=== PATIENT | female | born 1985 | race Caucasian/White ===

== ENCOUNTER 2017-01-11 20:02 | Emergency (ER) | payer OTHER ==
[2017-01-11] MEDS ORDERED: IV NORMAL SALINE 1000ML BAG 1,000 ML IV SCH (20:46)
[2017-01-11] MEDS ORDERED: ONDANSETRON PF 4 MG/2 ML VIAL. IV ONE ×3 (21:00→23:15)
[2017-01-11] MEDS ORDERED: fentaNYL PF VIAL 100 MCG/2 ML VIAL IV ONE (21:00)
[2017-01-11 21:02] LABS: BASO % 0 % (0-3); EOS % 0 % (0-3); HEMATOCRIT 45.7 % (36.0-47.0); HEMOGLOBIN 15.4 g/dL (12.0-15.5); LYMPH # 0.6 x10^3/uL (1.0-4.8); LYMPH % 4 % (24-48); MEAN CORPUSCULAR HEMOGLOBIN 31 pg (25-35); MEAN CORPUSCULAR HGB CONC 34 g/dL (31-37); MEAN CORPUSCULAR VOLUME 91 fL (79-100); MONO % 2 % (0-9); NEUT % 94 % (31-73); PLATELET COUNT 172 x10^3/uL (140-400); RED BLOOD COUNT 5.01 x10^6/uL (3.50-5.40); RED CELL DISTRIBUTION WIDTH 12.8 % (11.5-14.5); WHITE BLOOD COUNT 16.3 x10^3/uL (4.0-11.0)
[2017-01-11] MEDS: fentaNYL PF VIAL 100 MCG/2 ML VIAL IV PRN ×3 (21:09→23:13)
[2017-01-11 21:15] LABS: CALCIUM 9.7 mg/dL (8.5-10.1); GFR 65.1; POTASSIUM 3.7 mmol/L (3.5-5.1)
[2017-01-11 21:16] LABS: BILIRUBIN,URINE NEGATIVE (NEG); GLUCOSE,URINE NEGATIVE (NEG); NITRITE,URINE NEGATIVE (NEG); PROTEIN,URINE 30 mg/dL (NEG-TRACE)
[2017-01-11 21:19] LABS: ALBUMIN 4.3 g/dL (3.4-5.0); ALBUMIN/GLOBULIN RATIO 1.2 (1.0-1.7); TOTAL BILIRUBIN 0.8 mg/dL (0.2-1.0); TOTAL PROTEIN 7.9 g/dL (6.4-8.2)
[2017-01-11 21:32] LABS: BACTERIA,URINE FEW /HPF (0-FEW); RBC,URINE 0 /HPF (0-2); SQUAMOUS EPITHELIAL CELL,UR FEW /LPF; WBC,URINE OCC /HPF (0-4)
[2017-01-11 21:41] LABS: PLT ESTIMATE ADEQUATE (ADEQUATE); TOXIC GRANULATION MOD
[2017-01-11 21:59] LABS: NEG OBC UR NEG; POS OBC UR POS
[2017-01-11] MEDS ORDERED: IOHEXOL 300 MG/ML 75 ML VIAL IV ONE (22:15)
[2017-01-11] MEDS ORDERED: CONTRAST GIVEN MC PRN (22:15)
--- NOTE | 2017-01-11 22:29 | RAD ---
CT abdomen and pelvis with contrast Indication: Abdominal pain and vomiting since 8:00 AM.. . Technique: Intravenous contrast is given. No oral contrast as per request. Comparison:None available Exposure: One or more of the following individualized dose reduction techniques were utilized for this examination: 1. Automated exposure control 2. Adjustment of the mA and/or kV according to patient size 3. Use of iterative reconstruction technique. FINDINGS: Lower thorax: Lung bases are clear. Pneumoperitoneum:No gross pneumoperitoneum. Liver: Unremarkable Spleen: Borderline enlarged at 12.5 cm. Pancreas: Unremarkable Adrenals:No evidence of mass. Kidneys:Unremarkable Gallbladder: Surgically absent. Aorta: Abdominal aorta is nonaneurysmal Lymph nodes: No significant enlargement GI tract: The stomach is distended and ptotic. No evidence of bowel obstruction. Mild retained stool in the cecum. Appendix: Not definitively visualized. Ascites: No gross ascites. Urinary bladder: Not opacified or distended. Bones: No destructive process. IMPRESSION: 1. Borderline splenomegaly. 2. No acute findings in the abdomen or pelvis. 3. Retained stool identified at the cecum. Electronically signed by: Kev Kauffman MD (01/11/2017 10:26 PM) [facility]
--- NOTE | 2017-01-11 23:02 | PHYS DOC ---
Past Medical History Past Medical History: Kidney Stone Past Surgical History: Cholecystectomy, Tubal ligation Additional Past Surgical Histo: PLATE IN WRIST,duodenal jejunostomy Alcohol Use: None Drug Use: None Adult General Chief Complaint Chief Complaint: ABDOMINAL PAIN HPI HPI Patient is a 31 year old female who comes to the ED by EMS for the complaint of abdominal pain, nausea and vomiting. Patient states that she has problems from time to time with abdominal pain and vomiting. She states that she is vomited about 20 times today. It's been 4 or 5 months since she's had to go to the ER for this. She usually goes to the ER in [place] because she lives in [place]. Patient states usually when she has this, she has to go to the ER and get IV fluids, IV pain and nausea medications, to get it stopped. Patient states in about 2006 she had surgery where they "redid my lower intestines". She did not have an ostomy. She has also had gallbladder removed and "13 kidney stones", also tubal ligation. She denies history of a bowel obstruction. She does not know whether there is a specific diagnosis of her recurrent abdominal pain problems. PCP Dr. Napier in [place] Review of Systems Review of Systems Constitutional: Denies fever or chills [] HENT: She has had a bit of a scratchy throat Respiratory: Denies cough or shortness of breath [] GI: As in history of present illness : Denies Musculoskeletal: Denies back pain or joint pain [] Current Medications Current Medications Current Medications Medications (Trade) Dose Ordered Sig/Leann Start Time Stop Time Status Last Admin Dose Admin Fentanyl Citrate (Fentanyl 2ml Vial) 50 mcg PRN Q15MIN PRN 01/11/17 21:00 01/11/17 23:23 DC 01/11/17 23:13 50 MCG Info (Do NOT chart on this entry -- for MONITORING) 1 each PRN DAILY PRN 01/11/17 22:15 01/11/17 23:23 DC Iohexol (Omnipaque 300 Mg/ml) 75 ml 1X ONCE 01/11/17 22:15 01/11/17 22:16 DC 01/11/17 22:10 75 ML Ondansetron HCl (Zofran) 4 mg 1X ONCE 01/11/17 23:15 01/11/17 23:16 DC 01/11/17 23:13 4 MG Sodium Chloride 1,000 ml @ 1,000 mls/hr Q1H 01/11/17 20:46 01/11/17 21:45 DC 01/11/17 20:46 1,000 MLS/HR Allergies Allergies Allergies Coded Allergies Type Severity Reaction Last Updated Verified No Known Drug Allergies 07/25/14 No Physical Exam Physical Exam Constitutional: Thin female, alert, appears uncomfortable, alert and mentating normally. HENT: Normocephalic, atraumatic, bilateral external ears normal, oropharynx moist, tonsils not enlarged, no pharyngeal erythema, nose normal. [] Eyes: conjunctiva normal, no discharge. [] Neck: Normal range of motion, no stridor. [] Cardiovascular:Heart rate regular rhythm, no murmur [] Lungs & Thorax: Bilateral breath sounds clear to auscultation [] Abdomen: Bowel sounds normal, soft, no masses, no pulsatile masses. Nondistended. Mildly tender to palpation throughout the abdomen. No rebound or guarding. No localized tenderness. Also noted is skin discoloration of the abdominal wall the patient states is from overuse of a heating pad. Skin: Warm, dry, no erythema, no rash. [] Extremities: No tenderness, no cyanosis, no clubbing, ROM intact, no edema. [] Neurologic: Alert and oriented X 3, normal motor function, normal sensory function, no focal deficits noted. [] Current Patient Data Vital Signs Vital Signs Date Time Temp Pulse Resp B/P (MAP) Pulse Ox O2 Delivery O2 Flow Rate FiO2 01/11/17 23:15 94 16 120/78 (92) 98 Room Air 01/11/17 21:10 98.4 98.4 Lab Values Laboratory Tests Test 01/11/17 20:15 01/11/17 20:55 01/11/17 21:00 White Blood Count 16.3 x10^3/uL (4.0-11.0) H Red Blood Count 5.01 x10^6/uL (3.50-5.40) Hemoglobin 15.4 g/dL (12.0-15.5) Hematocrit 45.7 % (36.0-47.0) Mean Corpuscular Volume 91 fL (79-100) Mean Corpuscular Hemoglobin 31 pg (25-35) Mean Corpuscular Hemoglobin Concent 34 g/dL (31-37) Red Cell Distribution Width 12.8 % (11.5-14.5) Platelet Count 172 x10^3/uL (140-400) Neutrophils (%) (Auto) 94 % (31-73) H Lymphocytes (%) (Auto) 4 % (24-48) L Monocytes (%) (Auto) 2 % (0-9) Eosinophils (%) (Auto) 0 % (0-3) Basophils (%) (Auto) 0 % (0-3) Neutrophils # (Auto) 15.3 x10^3uL (1.8-7.7) H Lymphocytes # (Auto) 0.6 x10^3/uL (1.0-4.8) L Monocytes # (Auto) 0.3 x10^3/uL (0.0-1.1) Eosinophils # (Auto) 0.0 x10^3/uL (0.0-0.7) Basophils # (Auto) 0.0 x10^3/uL (0.0-0.2) Segmented Neutrophils % 74 % (35-66) H Band Neutrophils % 21 % (0-9) H Lymphocytes % 5 % (24-48) L Toxic Granulation Mod Platelet Estimate Adequate (ADEQUATE) Sodium Level 138 mmol/L (136-145) Potassium Level 3.7 mmol/L (3.5-5.1) Chloride Level 102 mmol/L (98-107) Carbon Dioxide Level 20 mmol/L (21-32) L Anion Gap 16 (6-14) H Blood Urea Nitrogen 17 mg/dL (7-20) Creatinine 1.0 mg/dL (0.6-1.0) Estimated GFR (Cockcroft-Gault) 65.1 BUN/Creatinine Ratio 17 (6-20) Glucose Level 157 mg/dL (70-99) H Calcium Level 9.7 mg/dL (8.5-10.1) Total Bilirubin 0.8 mg/dL (0.2-1.0) Aspartate Amino Transferase (AST) 16 U/L (15-37) Alanine Aminotransferase (ALT) 15 U/L (14-59) Alkaline Phosphatase 62 U/L (46-116) Total Protein 7.9 g/dL (6.4-8.2) Albumin 4.3 g/dL (3.4-5.0) Albumin/Globulin Ratio 1.2 (1.0-1.7) Lipase 72 U/L (73-393) L Urine Test Negative (NEG) Urine Collection Type Unknown Urine Color Dk yellow Urine Clarity Clear Urine pH 8.0 Urine Specific Eunice 1.025 Urine Protein 30 mg/dL (NEG-TRACE) Urine Glucose (UA) Negative mg/dL (NEG) Urine Ketones (Stick) 40 mg/dL (NEG) Urine Blood Negative (NEG) Urine Nitrite Negative (NEG) Urine Bilirubin Negative (NEG) Urine Urobilinogen Dipstick 1.0 mg/dL (0.2 mg/dL) Urine Leukocyte Esterase Negative (NEG) Urine RBC 0 /HPF (0-2) Urine WBC Occ /HPF (0-4) Urine Squamous Epithelial Cells Few /LPF Urine Bacteria Few /HPF (0-FEW) Urine Mucus Marked /LPF Laboratory Tests 01/11/17 20:15 Laboratory Tests 01/11/17 20:15 EKG EKG [] Radiology/Procedures Radiology/Procedures CT scan of the abdomen and pelvis with IV contrast was read by the radiologist. No acute findings.[] Course & Med Decision Making Course & Med Decision Making Pertinent Labs and Imaging studies reviewed. (See chart for details) 31-year-old female with a history of chronic recurrent bouts of abdominal pain with nausea and vomiting, has not been evaluated here at [facility] for this in the past. She doesn't have a known diagnosis. She has had abdominal surgery in the past. I do feel that we need to rule out bowel obstruction. Labs are consistent with the patient's history of multiple episodes of vomiting , with leukocytosis and she appears mildly dehydrated. Otherwise unremarkable. CT scan of the abdomen and pelvis negative for acute findings. Pt Was treated in the ED with IV fluids, IV pain and nausea medication. Recheck of the patient, she appears to feel much better. She is no longer vomiting. She does not appear to be in any distress. I discussed the reassuring findings with her and she is comfortable with discharge. She will call a family member to come pick her up. [] Dragon Disclaimer Dragon Disclaimer This electronic medical record was generated, in whole or in part, using a voice recognition dictation system. Departure Departure Impression: Primary Impression: Abdominal pain, chronic, generalized Additional Impression: Nausea & vomiting Disposition: 01 HOME, SELF-CARE Condition: IMPROVED Referrals: KYRA JUAREZ MD (PCP) Patient Instructions: Nausea and Vomiting, [id number] Additional Instructions: No driving for 12 hours because of the medications you were given here. Drink small amounts of fluid frequently to stay hydrated. Clear liquids only until your symptoms have improved. Follow-up with your primary care doctor for further evaluation and treatment of your chronic abdominal problems. Problem Qualifiers KARISSA SIFUENTES MD Jan 11, 2017 23:02
[2017-01-11 23:15] VITALS: BP 120/78
== END 2017-01-11 23:22 | disposition home or self-care (01) ==
LOC: ER 20:02
DX: G89.29 Other chronic pain (principal); R10.84 Generalized abdominal pain; R11.2 Nausea with vomiting, unspecified; Z90.49 Acquired absence of other specified parts of digestive tract; Z87.442 Personal history of urinary calculi; Z98.51 Tubal ligation status
CPT/HCPCS: 36415; 74177; 80053; 81001; 81025; 83690; 85007; 85025; 96361; 96374; 96375; 96376; 99285; J2405; J3010; J7030; Q9967

== ENCOUNTER 2017-08-14 05:30 | Emergency (ER) | payer OTHER ==
[2017-08-14 05:47] LABS: URINE HCG POC HCG NEGATIVE (Negative)
[2017-08-14] MEDS: ONDANSETRON PF 4 MG/2 ML VIAL. IV (05:56)
[2017-08-14] MEDS: IV NORMAL SALINE 1000ML BAG 1,000 ML IV (05:57)
[2017-08-14] MEDS: diphenhydrAMINE 50 MG/ML VIAL IVP (06:02)
[2017-08-14] MEDS: METOCLOPRAMIDE HCL 10 MG/2 ML VIAL. IV (06:02)
[2017-08-14] MEDS: HALOPERIDOL LACTATE 5 MG/ML VIAL. IVP (06:02)
[2017-08-14 06:06] LABS: BASO % 0 % (0-3); EOS % 0 % (0-3); HEMATOCRIT 47.6 % (36.0-47.0); HEMOGLOBIN 16.5 g/dL (12.0-15.5); LYMPH # 0.9 x10^3/uL (1.0-4.8); LYMPH % 6 % (24-48); MEAN CORPUSCULAR HEMOGLOBIN 32 pg (25-35); MEAN CORPUSCULAR HGB CONC 35 g/dL (31-37); MEAN CORPUSCULAR VOLUME 91 fL (79-100); MONO # 0.3 x10^3/uL (0.0-1.1); MONO % 2 % (0-9); NEUT # 14.4 x10^3uL (1.8-7.7); NEUT % 92 % (31-73); PLATELET COUNT 253 x10^3/uL (140-400); RED BLOOD COUNT 5.24 x10^6/uL (3.50-5.40); RED CELL DISTRIBUTION WIDTH 12.5 % (11.5-14.5); WHITE BLOOD COUNT 15.6 x10^3/uL (4.0-11.0)
[2017-08-14 06:21] LABS: ADD MAN DIFF? YES
[2017-08-14 06:22] LABS: CLARITY,URINE CLEAR; COLOR,URINE AMBER
[2017-08-14 06:23] LABS: BACTERIA,URINE 0 /HPF (0-FEW); BILIRUBIN,URINE SMALL (NEG); GLUCOSE,URINE NEGATIVE (NEG); NITRITE,URINE NEGATIVE (NEG); PROTEIN,URINE 30 mg/dL (NEG-TRACE); RBC,URINE 0 /HPF (0-2); SQUAMOUS EPITHELIAL CELL,UR MOD /LPF
[2017-08-14 07:14] LABS: ALBUMIN 3.7 g/dL (3.4-5.0); ALK PHOS 65 U/L (46-116); ALT (SGPT) 24 U/L (14-59); ANION GAP 14 (6-14); AST (SGOT) 16 U/L (15-37); BLOOD UREA NITROGEN 16 mg/dL (7-20); BUN/CREATININE RATIO 15 (6-20); CALCIUM 8.2 mg/dL (8.5-10.1); CARBON DIOXIDE 20 mmol/L (21-32); CHLORIDE 106 mmol/L (98-107); CREATININE 1.1 mg/dL (0.6-1.0); GFR 58.3; GLUCOSE 141 mg/dL (70-99); LIPASE 52 U/L (73-393); POTASSIUM 4.2 mmol/L (3.5-5.1); SODIUM 140 mmol/L (136-145); TOTAL BILIRUBIN 0.5 mg/dL (0.2-1.0); TOTAL PROTEIN 7.4 g/dL (6.4-8.2)
[2017-08-14 07:16] LABS: BARBITURATES NEG (NEG); BENZODIAZEPINES POS (NEG); CANNABINOIDS POS (NEG); COCAINE NEG (NEG); METHADONE NEG (NEG); OPIATES POS (NEG); PHENCYCLIDINE NEG (NEG)
[2017-08-14 07:18] LABS: AMPHETAMINE/METHAMPHETAMINE NEG (NEG); ETHANOL, URINE NEG (NEG)
[2017-08-14 08:57] LABS: % LYMPHS 10 % (24-48); % SEGS 90 % (35-66)
[2017-08-14 08:58] LABS: PLT ESTIMATE ADEQUATE (ADEQUATE)
== END 2017-08-14 08:23 | disposition home or self-care (01) ==
LOC: ER 05:30
DX: R10.84 Generalized abdominal pain (principal); G43.A1 Cyclical vomiting, in migraine, intractable; R11.0 Nausea; G89.29 Other chronic pain; Z87.442 Personal history of urinary calculi; F17.210 Nicotine dependence, cigarettes, uncomplicated; Z98.51 Tubal ligation status; Z90.49 Acquired absence of other specified parts of digestive tract
CPT/HCPCS: 36415; 74022; 80053; 80307; 81001; 81025; 83690; 85007; 85025; 87086; 96361; 96374; 96375; 99285-25; J1200; J1630; J2405; J2765; J7030

== ENCOUNTER 2020-12-22 13:01 | Emergency (ER) | payer OTHER ==
[~2020-12-22] VITALS: Ht 160 cm; Wt 68.2 kg
[~2020-12-22 13:01] MED LIST: HYOS0.12 PO; ONDA4TAB10 PO
--- NOTE | 2020-12-22 13:28 | PHYS DOC ---
Past Medical History Past Medical History: Kidney Stone Additional Past Medical Histor: chronic abdominal pain Past Surgical History: Cholecystectomy, Tubal ligation Additional Past Surgical Histo: PLATE IN WRIST,duodenal jejunostomy Smoking Status: Current Every Day Smoker Alcohol Use: None Drug Use: None General Adult EDM: Chief Complaint: CHEST PAIN HPI: HPI: 35-year-old female PMH CAD on plavix (meds reviewed in backpack in ed), HTN, HLD, anxiety/depression and marijuana use, presents the ED with complaints of nonradiating chest pain described as " chest pressure right in the middle," stating this feels similar to her previous heart attack in August 2020 at [facility]. Patient states pain has been constant for the past 2 days. Denies any cocaine or methamphetamine abuse but does admit to marijuana use. No relief with heated chakraborty bag on chest. Reports tetanus is UTD. Is requesting IV fluids and analgesia. Review of Systems: Review of Systems: Constitutional: Denies fever or chills. [] Eyes: Denies change in visual acuity. [] HENT: Denies nasal congestion or sore throat. [] Respiratory: Denies cough or shortness of breath. [] Cardiovascular: Denies syncope or edema GI: Denies abdominal pain, nausea, vomiting, bloody stools or diarrhea. [] : Denies dysuria or vaginal bleeding Musculoskeletal: Denies back pain or joint pain. [] Integument: Denies rash or diaphoresis Neurologic: Denies headache, focal weakness or sensory changes. [] Endocrine: Denies polyuria or polydipsia. [] Lymphatic: Denies swollen glands. [] Psychiatric: Denies depression or anxiety. [] Heart Score: C/O Chest Pain: Yes HEART Score for Chest Pain: HEART Score for Chest Pain Response (Comments) Value History Moderately Suspicious 1 ECG Normal 0 Age < 45 0 Risk Factors >3 Risk Factors or Hx CAD 2 Troponin < Normal Limit 0 Total 3 Risk Factors: Risk Factors: DM, Current or recent (<one month) smoker, HTN, HLP, family history of CAD, obesity. Risk Scores: Score 0 - 3: 2.5% MACE over next 6 weeks - Discharge Home Score 4 - 6: 20.3% MACE over next 6 weeks - Admit for Clinical Observation Score 7 - 10: 72.7% MACE over next 6 weeks - Early Invasive Strategies Allergies: Allergies: Allergies Coded Allergies Type Severity Reaction Last Updated Verified No Known Drug Allergies 07/25/14 No Physical Exam: PE: Constitutional: Afebrile, unkept disheveled appearance, no peripheral iv access- difficult to obtain HENT: Normocephalic, atraumatic, Eyes: EOMI, conjunctiva normal, no discharge. Neck: Normal range of motion, supple, Cardiovascular: S1/2 present, regular rhythm, small ruptured blister with no surrounding erythema over mid-chest Lungs & Thorax: Speaking in full sentences, bilateral equal chest rise, no tachypnea or increased work of breathing Abdomen: soft, no tenderness, Skin: Warm, dry, no erythema, no rash. [] Back: No tenderness, no CVA tenderness. [] Extremities: No tenderness, no cyanosis, no lower extremity edema Neurologic: Alert and oriented X 3, normal motor function, normal sensory fun ction, no focal deficits noted. [] Psychologic: Affect normal, judgement normal, mood normal. [] EKG: EK Sinus rhythm 93 bpm, no axis deviation, normal intervals, poor baseline EKG with no obvious ST elevations, ST depressions or T wave inversions 1415 sinus at 93 bpm, no axis deviation, QTC 470, no obvious ST elevations or ST depressions, no TWIs Radiology/Procedures: Radiology/Procedures: IMAGING REPORT Signed PATIENT: APOLINAR CARROLL ACCOUNT: [id number] : 1985 LOCATION: ER AGE: 35 SEX: F EXAM STATUS: PRE ER ORD. PHYSICIAN: FOREIGN LOTT DO REASON: cp PROCEDURE: PORTABLE CHEST 1V Exam performed: One view chest. Indication: Reason: cp / Spl. Instructions: / History: Date of Service: 12/22/2020 1:22 PM Comparison: 2 views chest from 12/29/2012. Single AP upright portable view chest findings: Cardiomediastinal silhouette is within limits of normal. No acute infiltrates, effusion or pneumothorax is detected. The bony structures are normal. Impression: No acute cardiopulmonary process is detected. Electronically signed by: Trip Arteaga MD (12/22/2020 1:36 PM) [id number] DICTATED and SIGNED BY: TRIP ARTEAGA MD DATE: 12/22/20 [id number] 0 Impression: PERC rule for pulmonary embolus 0 criteria No need for further workup, as <2% chance of PE. If no criteria are positive and clinicians pre-test probability is <15%, PERC Rule criteria are satisfied. Course & Med Decision Making: Course & Med Decision Making Pertinent Labs and Imaging studies reviewed. (See chart for details) Concern for atypical chest pain x 2 days with no associated sxs. Low risk for MACE. Perc rule negative. D-dimer wnl. Two troponin negative with no obvious ischemia on ekg. On re-evaluation, patient calm, resting and in no distress and states her symptoms have resolved. Will discharge home with strict ED return precautions were given for syncope, neurologic deficits, difficulties breathing or chest pressure with nausea, vomiting and diaphoresis. Encouraged urgent outpatient follow-up with PMD and cardiology. Life-threatening processes were considered but are low suspicion at this time, given history, physical exam and ED workup. Pt was educated on all prescription medications and adverse effects. All patient's questions were answered and pt was stable at time of discharge. Life/limb-threatening differential includes but is not limited to, acute myocardial infarction, aortic dissection, congestive heart failure, esophageal i njury including rupture, surgical abdomen, arrhythmia, cardiomyopathy, myocarditis, pericarditis, peptic ulcer disease, pneumomediastinum, pneumonia, pneumothorax, pulmonary embolus, unstable angina, rib fracture, contusion, pericardial tamponade or effusion, traumatic injury including mediastinal hemorrhage or hematoma, or pulmonary contusion. I have spoken with the patient and/or caregivers. I explained the patient's condition, diagnoses and treatment plan based on the information available to me at this time. I have answered the patient and/or caregiver's questions and addressed any concerns. The patient and/or caregivers have a good understanding of patient's diagnosis, condition and treatment plan as can be expected at this point. Vital signs have been stable. Patient's condition is stable and appropriate for discharge from the emergency department. Patient will pursue further outpatient evaluation with primary care physician or other designated or consulting physician as outlined in the discharge instructions. The patient and/or caregivers are agreeable to this plan of care and follow-up instructions have been explained in detail. The patient and/or caregivers have received these instructions in written form and have expressed an understanding of the discharge instructions. The patient and/or caregivers are aware that any significant change of condition or worsening of symptoms should prompt immediate return to this or the closest emergency department or call to 911. Samuel Disclaimer: Samuel Disclaimer: This electronic medical record was generated, in whole or in part, using a voice recognition dictation system. Departure Departure Impression: Primary Impression: Chest pain Disposition: HOME / SELF CARE / HOMELESS Condition: STABLE Referrals: JOSH STEVENSON MD (PCP) Follow-up with your primary care physician in 24 to 48 hours OR FOLLOW UP WITH FAMILY MEDICINE: [address] [place] [address] Patient Instructions: Chest Pain (Nonspecific) Additional Instructions: FOLLOW UP WITH CARDIOLOGY: FOR DEFINITIVE MANAGEMENT within 1 week [facility] [address] [place] [address] EMERGENCY DEPARTMENT GENERAL DISCHARGE INSTRUCTIONS Thank you for coming to [facility] Emergency Department (ED) today and trusting us with you care. We trust that you had a positive experience in our Emergency Department. If you wish to speak to the department management, you may call the Director at [phone]. YOUR FOLLOW UP INSTRUCTIONS ARE FOLLOWS: 1. Do you have a private Doctor? If you do not have a private doctor, please ask for a resource list of physicians or clinics that may be able to assist you with follow up care. ADDITIONAL INSTRUCTIONS AND INFORMATION: 1. Your care today has been supervised by a physician who is specially trained in emergency care. Many problems require more than one evaluation for a complete diagnosis and treatment. We recommend that you schedule your follow up appointment as re commended to ensure complete treatment of you illness or injury. If you are unable to obtain follow up care and continue to have a problem, or if your condition worsens, we recommend that you return to the ED. 2. We are not able to safely determine your condition over the phone nor are we able to give sound medical advice over the phone. For these safety reasons, if you call for medical advice we will ask you to come to the ED for further evaluation. 3. If you have any questions regarding these discharge instructions please call the ED at [phone]. SAFETY INFORMATION: In the interest of safety, wellness, and injury prevention; we encourage you to wear your sealbelt, if you smoke; quite smoking, and we encourage family to use a protective helmet for bicycling and other sporting events that present an increased risk for head injury. IF YOUR SYMPTOMS WORSEN OR NEW SYMPTOMS DEVELOP, OR YOU HAVE CONCERNS ABOUT YOUR CONDITION; OR IF YOUR CONDITION WORSENS WHILE YOU ARE WAITING FOR YOUR FOLLOW UP APPOINTMENT; EITHER CONTACT YOUR PRIMARY CARE DOCTOR, THE PHYSICIAN WHOSE NAME AND NUMBER YOU WERE GIVEN, OR RETURN TO THE ED IMMEDIATELY. [facility] DO Dec 22, 2020 13:28
--- NOTE | 2020-12-22 13:39 | RAD ---
Exam performed: One view chest. Indication: Reason: cp / Spl. Instructions: / History: Date of Service: 12/22/2020 1:22 PM Comparison: 2 views chest from 12/29/2012. Single AP upright portable view chest findings: Cardiomediastinal silhouette is within limits of normal. No acute infiltrates, effusion or pneumotho rax is detected. The bony structures are normal. Impression: No acute cardiopulmonary process is detected. Electronically signed by: Jessica Arteaga MD (12/22/2020 1:36 PM) [id number]
[2020-12-22 13:41] LABS: BARBITURATES NEG (NEG); BENZODIAZEPINES NEG (NEG); CANNABINOIDS POS (NEG); COCAINE NEG (NEG); METHADONE NEG (NEG); OPIATES POS (NEG); PHENCYCLIDINE NEG (NEG)
[2020-12-22 13:42] LABS: AMPHETAMINE/METHAMPHETAMINE NEG (NEG)
[2020-12-22 14:09] LABS: CALCIUM 9.2 mg/dL (8.5-10.1); CREATININE 0.9 mg/dL (0.6-1.0); GFR 71.7; POTASSIUM 3.3 mmol/L (3.5-5.1)
--- NOTE | 2020-12-22 14:23 | EKG ---
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
--- NOTE | 2020-12-22 14:24 | EKG ---
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
[2020-12-22 14:27] LABS: ALBUMIN/GLOBULIN RATIO 1.2 (1.0-1.7); MAGNESIUM 1.9 mg/dL (1.8-2.4); TOTAL BILIRUBIN 0.7 mg/dL (0.2-1.0); TOTAL PROTEIN 7.3 g/dL (6.4-8.2)
[2020-12-22 15:03] LABS: BASO # 0.1 x10^3/uL (0.0-0.2); BASO % 0 % (0-3); EOS # 0.2 x10^3/uL (0.0-0.7); EOS % 1 % (0-3); HEMATOCRIT 41.2 % (36.0-47.0); HEMOGLOBIN 14.1 g/dL (12.0-15.5); LYMPH # 2.9 x10^3/uL (1.0-4.8); LYMPH % 20 % (24-48); MEAN CORPUSCULAR HEMOGLOBIN 28 pg (25-35); MEAN CORPUSCULAR HGB CONC 34 g/dL (31-37); MEAN CORPUSCULAR VOLUME 82 fL (79-100); MONO % 7 % (0-9); NEUT # 10.6 x10^3/uL (1.8-7.7); NEUT % 72 % (31-73); PLATELET COUNT 358 x10^3/uL (140-400); RED BLOOD COUNT 5.05 x10^6/uL (3.50-5.40); RED CELL DISTRIBUTION WIDTH 18.5 % (11.5-14.5); WHITE BLOOD COUNT 14.8 x10^3/uL (4.0-11.0)
[2020-12-22] MEDS ORDERED: MORPHINE SULFATE 10 MG/ML VIAL. IM ONE ×2 (15:30→17:00)
[2020-12-22] MEDS ORDERED: LIDOCAINE (700MG/PATCH) PATCH. TD SCH (15:30)
[2020-12-22] MEDS ORDERED: IV NORMAL SALINE 1000ML BAG 1,000 ML IV ONE (16:30)
[2020-12-22] MEDS ORDERED: KETOROLAC 15 MG/ML VIAL. IVP ONE (17:00)
[2020-12-22] MEDS ORDERED: MORPHINE SULFATE 10 MG/ML VIAL. IV ONE (17:00)
[2020-12-22] MEDS ORDERED: KETOROLAC 15 MG/ML VIAL. IM ONE (17:00)
[2020-12-22 19:01] VITALS: BP 146/105
[2020-12-22] MEDS ORDERED: PATCH REMOVAL. MC SCH (21:00)
== END 2020-12-22 19:04 | disposition home or self-care (01) ==
LOC: ER 13:01
DX: R07.89 Other chest pain (principal); G89.29 Other chronic pain; F17.200 Nicotine dependence, unspecified, uncomplicated
CPT/HCPCS: 36415; 71045; 80053; 80307; 81025; 83690; 83735; 83880; 84484; 85025; 85379; 93005; 96372; 99285; J1885; J2270; J7030

== ENCOUNTER 2021-02-22 13:10 | Emergency (ER) | payer OTHER ==
[~2021-02-22] VITALS: Ht 165.1 cm; Wt 81.0 kg
[2021-02-22] MEDS ORDERED: ONDANSETRON PF 4 MG/2 ML VIAL. IVP ONE (13:15)
[2021-02-22] MEDS ORDERED: IV NORMAL SALINE 1000ML BAG 1,000 ML IV SCH (13:15)
[2021-02-22] MEDS ORDERED: fentaNYL PF VIAL 100 MCG/2 ML VIAL IVP ONE ×2 (13:15→16:15)
[2021-02-22] MEDS ORDERED: FAMOTIDINE 20 MG/2 ML VIAL IVP ONE (13:30)
[2021-02-22 13:42] VITALS: BP 187/105
[2021-02-22 13:45] LABS: BASO # 0.1 x10^3/uL (0.0-0.2); BASO % 1 % (0-3); EOS % 0 % (0-3); HEMATOCRIT 40.2 % (36.0-47.0); HEMOGLOBIN 13.5 g/dL (12.0-15.5); LYMPH # 1.5 x10^3/uL (1.0-4.8); LYMPH % 10 % (24-48); MEAN CORPUSCULAR HEMOGLOBIN 28 pg (25-35); MEAN CORPUSCULAR HGB CONC 34 g/dL (31-37); MEAN CORPUSCULAR VOLUME 83 fL (79-100); MONO # 0.3 x10^3/uL (0.0-1.1); MONO % 2 % (0-9); NEUT # 13.3 x10^3/uL (1.8-7.7); NEUT % 88 % (31-73); PLATELET COUNT 628 x10^3/uL (140-400); RED BLOOD COUNT 4.85 x10^6/uL (3.50-5.40); RED CELL DISTRIBUTION WIDTH 15.5 % (11.5-14.5); WHITE BLOOD COUNT 15.2 x10^3/uL (4.0-11.0)
[2021-02-22] MEDS ORDERED: HALOPERIDOL LACTATE 5 MG/ML VIAL. IVP ONE ×2 (13:45→15:15)
--- NOTE | 2021-02-22 13:46 | PHYS DOC ---
Past Medical History Past Medical History: Kidney Stone Additional Past Medical Histor: chronic abdominal pain Past Surgical History: Cholecystectomy, Tubal ligation Additional Past Surgical Histo: PLATE IN WRIST,duodenal jejunostomy Smoking Status: Current Every Day Smoker Alcohol Use: Occasionally Drug Use: None General Adult HPI: HPI: Patient is a 35 year old female who presents with states that this morning she awoke with sharp epigastric pain. Treated pain a 10 out of 10. EMS states that her 10-year-old daughter called 911 and said that her mom was having a seizure. When EMS arrived the patient was on the floor and flailing and moaning. They gave her 5 mg of Versed and she stopped. Patient states last time she had a seizure was in August and it only happened 1 time and she is on medication. She states last week she had been diagnosed with the flu. Patient repeatedly for EMS and here in the ED is sticking her fingers down her throat to cause her to vomit. Patient states that she cannot stop doing it. Review of Systems: Review of Systems: Constitutional: Denies fever or chills. [] Eyes: Denies change in visual acuity. [] HENT: Denies nasal congestion or sore throat. [] Respiratory: Denies cough or shortness of breath. [] Cardiovascular: Denies chest pain or edema. [] GI: +abdominal pain, +nausea, +vomiting, denies bloody stools or diarrhea. [] : Denies dysuria. [] Musculoskeletal: Denies back pain or joint pain. [] Integument: Denies rash. [] Neurologic: Denies headache, focal weakness or sensory changes. [] Endocrine: Denies polyuria or polydipsia. [] Lymphatic: Denies swollen glands. [] Psychiatric: Denies depression or anxiety. [] Heart Score: C/O Chest Pain: No Current Medications: Current Medications Medications (Trade) Dose Ordered Sig/Leann Start Time Stop Time Status Last Admin Dose Admin Famotidine (Pepcid Vial) 20 mg 1X ONCE 02/22/21 13:30 02/22/21 13:31 Fentanyl Citrate (Fentanyl 2ml Vial) 25 mcg 1X ONCE 02/22/21 13:15 02/22/21 13:20 DC Ondansetron HCl (Zofran) 4 mg 1X ONCE 02/22/21 13:15 02/22/21 13:20 DC Sodium Chloride 1,000 ml @ 1,000 mls/hr Q1H 02/22/21 13:15 02/22/21 14:14 Allergies: Allergies: Allergies Coded Allergies Type Severity Reaction Last Updated Verified No Known Drug Allergies 07/25/14 No Physical Exam: PE: Constitutional: Well developed, well nourished, no acute distress, non-toxic appearance. [] HENT: Normocephalic, atraumatic, bilateral external ears normal, oropharynx moist, no oral exudates, nose normal. [] Eyes: PERRLA, EOMI, conjunctiva normal, no discharge. [] Neck: Normal range of motion, no tenderness, supple, no stridor. [] Cardiovascular:Heart rate regular rhythm, no murmur [] Lungs & Thorax: Bilateral breath sounds clear to auscultation [] Abdomen: Bowel sounds normal, soft, epigastric tenderness, no masses, no pulsatile masses. [] Skin: Warm, dry, no erythema, no rash. [] Back: No tenderness, no CVA tenderness. [] Extremities: No tenderness, no cyanosis, no clubbing, ROM intact, no edema. [] Neurologic: Alert and oriented X 3, normal motor function, normal sensory f unction, no focal deficits noted. [] Psychologic: Affect normal, judgement normal, mood normal. Anxious, self induced vomiting [] EKG: EK and read by Dr. Galan as a sinus rhythm and no STEMI. Radiology/Procedures: Radiology/Procedures: [] Impression: [facility] [address] [place] [address] IMAGING REPORT Signed PATIENT: APOLINAR CARROLL ACCOUNT: [id number] : 1985 LOCATION: ER AGE: 35 SEX: F EXAM STATUS: PRE ER ORD. PHYSICIAN: JORDY CLEMENTS APRN REASON: vomiting, epigastric pain PROCEDURE: PORTABLE CHEST 1V XR CHEST 1V Clinical History: Reason: vomiting, epigastric pain / Spl. Instructions: / History: Technique: AP view of the chest was obtained at 02/22/2021 1:21 PM. Comparison: None. Findings: The cardiomediastinal silhouette is normal. The pulmonary vasculature is normal. A few linear opacities in the lower lungs is likely discoid atelectasis. Impression: No evidence of an acute cardiopulmonary process. Electronically signed by: Alfa Chua III, MD (02/22/2021 2:05 PM) [facility] DICTATED and SIGNED BY: ALFA CHUA III, MD DATE: 02/22/21 [id number] [facility] [address] [place] [address] IMAGING REPORT Signed PATIENT: APOLINAR CARROLL ACCOUNT: [id number] : 1985 LOCATION: ER AGE: 35 SEX: F EXAM STATUS: REG ER ORD. PHYSICIAN: JORDY CLEMENTS APRN REASON: epigastric pain, vomiting, PROCEDURE: CT ABD PELV W/ IV CONTRST ONLY INDICATION: Reason: epigastric pain, vomiting, / Spl. Instructions: omni 300 60ml / History: COMPARISON: January 2017 TECHNIQUE: Axial CT images were obtained through the abdomen and pelvis with intravenous contrast. One or more of the following individualized dose reduction techniques were utilized for this examination: 1. Automated exposure control; 2. Adjustment of the mA and/or kV according to patient size; 3. Use of iterative reconstruction technique. FINDINGS: Vascular: No abdominal aortic aneurysm. Hepatobiliary: Postcholecystectomy changes. Pancreas: No peripancreatic edema. Spleen: Heterogenous enhancement which could be from phase of contrast but limits evaluation. Renal/Bladder: Urinary bladder largely decompressed. No hydronephrosis. Gastrointestinal: Prominence the wall throughout the colon. The colon is not very distended. No periappendiceal inflammatory changes. No dilated loops of bowel suggest obstruction. There is some degenerative changes the spine with disc protrusions as well as early osteophyte formation. IMPRESSION: * No evidence of bowel obstruction or appendicitis. * The colon is not very distended but the wall does appear prominent in thickness. Would correlate with symptoms to ensure this is not from colitis. Electronically signed by: Chelo Hicks MD (02/22/2021 3:51 PM) [employer] [id number] DICTATED and SIGNED BY: CHELO HICKS MD DATE: 02/22/21 [id number] 0 Course & Med Decision Making: Course & Med Decision Making Pertinent Labs and Imaging studies reviewed. (See chart for details) See HPI. Alert and oriented x4. Ambulatory with a steady gait. She is not postictal. She denies headache, syncope, chest pain, shortness of air, dizzin ess, vision change, focal weakness, numbness or tingling. Patient is sticking her fingers down her throat upon the and nurse in the room. Patient continues to do so. Skin pink warm and dry. Cap refill less than 2 seconds. 1405: Patient began to flail around in the bed and moan when nurse in the room. When leaving the room patient promptly stops and is not postictal. Patient is a sking for morphine 8 mg and states that the only thing that takes her pain away. She did receive 5 mg of Haldol and she seemed to settle down. Patient has drink 2 cups of water and took potassium p.o. and has kept it down. Patient is given 2 L of normal saline in the ED. CT was generally unremarkable. She denies any kind of diarrhea or constipation and I do not think that she has colitis. Urine does have leukocytes and some white blood cells but also looks to be contaminated. Due to her having vomiting I will go ahead and just give her Rocephin 1 g. Patient will be given fentanyl pain medication and discharged home with Zofran. She can follow-up with her primary care provider. Patient is stable and in no distress. [] Samuel Disclaimer: Samuel Disclaimer: This electronic medical record was generated, in whole or in part, using a voice recognition dictation system. Departure Departure Impression: Primary Impression: Gastroenteritis Additional Impression: UTI (urinary tract infection) Qualified Codes: N39.0 - Urinary tract infection, site not specified Disposition: HOME / SELF CARE / HOMELESS Condition: STABLE Referrals: UNKNOWN PCP NAME (PCP) Patient Instructions: Urinary Tract Infection, Viral Gastroenteritis Additional Instructions: Follow-up with a primary care provider soon as possible. He can also follow-up with a gastrointestinal doctor. Drink plenty of fluids. Take medication as prescribed and with food. Scripts Cephalexin (KEFLEX) 500 Mg Capsule 1 CAP PO TID for 7 Days, #21 CAP Prov: JORDY CLEMENTS APRN 02/22/21 Ondansetron (ONDANSETRON ODT) 4 Mg Tab.rapdis 1 TAB PO PRN Q6-8HRS, #16 TAB Prov: JORDY CLEMENTS APRN 02/22/21 Famotidine (PEPCID) 20 Mg Tablet 20 MG PO BID, #20 TAB Prov: JORDY CLEMENTS APRN 02/22/21 JORDY CLEMENTS APRN Feb 22, 2021 13:46
[2021-02-22] MEDS ORDERED: AMMONIA AROMATIC 15% INHALANT AMPUL. ONE (14:00)
[2021-02-22 14:01] LABS: CALCIUM 9.3 mg/dL (8.5-10.1); CREATININE 1.2 mg/dL (0.6-1.0); GFR 51.4; POTASSIUM 3.1 mmol/L (3.5-5.1)
[2021-02-22 14:06] LABS: ALBUMIN 3.6 g/dL (3.4-5.0); ALBUMIN/GLOBULIN RATIO 0.9 (1.0-1.7); TOTAL BILIRUBIN 0.4 mg/dL (0.2-1.0); TOTAL PROTEIN 7.8 g/dL (6.4-8.2)
--- NOTE | 2021-02-22 14:07 | RAD ---
XR CHEST 1V Clinical History: Reason: vomiting, epigastric pain / Spl. Instructions: / History: Technique: AP view of the chest was obtained at 02/22/2021 1:21 PM. Comparison: None. Findings: The cardiomediastinal silhouette is normal. The pulmonary vasculature is normal. A few linear opaciti es in the lower lungs is likely discoid atelectasis. Impression: No evidence of an acute cardiopulmonary process. Electronically signed by: Favio Antonio III, MD (02/22/2021 2:05 PM) [facility]
[2021-02-22] MEDS ORDERED: IV NORMAL SALINE 1000ML BAG 1,000 ML IV ONE (14:15)
[2021-02-22] MEDS ORDERED: CONTRAST GIVEN. MC PRN (14:15)
[2021-02-22] MEDS ORDERED: IOHEXOL 300 MG/ML 100ML VIAL. IV ONE (14:15)
[2021-02-22] MEDS ORDERED: POTASSIUM CHLORIDE 20 MEQ TABLET.ER. PO ONE (14:15)
[2021-02-22 14:25] LABS: % LYMPHS 11 % (24-48); % MONOS 5 % (0-10); % SEGS 84 % (35-66); PLT ESTIMATE INCREASED (ADEQUATE)
[2021-02-22 15:19] LABS: BILIRUBIN,URINE NEGATIVE (NEG); CLARITY,URINE CLOUDY; COLOR,URINE YELLOW; NITRITE,URINE NEGATIVE (NEG); PROTEIN,URINE 30 mg/dL (NEG-TRACE)
[2021-02-22 15:29] LABS: BACTERIA,URINE FEW /HPF (0-FEW)
[2021-02-22 15:30] LABS: RBC,URINE OCC /HPF (0-2)
--- NOTE | 2021-02-22 15:54 | RAD ---
INDICATION: Reason: epigastric pain, vomiting, / Spl. Instructions: omni 300 60ml / History: COMPARISON: January 2017 TECHNIQUE: Axial CT images were obtained through the abdomen and pelvis with intravenous contrast. One or more of the following individualized dose reduction techniques were utilized for this examinat ion: 1. Automated exposure control; 2. Adjustment of the mA and/or kV according to patient size; 3 . Use of iterative reconstruction technique. FINDINGS: Vascular: No abdominal aortic aneurysm. Hepatobiliary: Postcholecystectomy changes. Pancreas: No peripancreatic edema. Spleen: Heterogenous enhancement which could be from phase of contrast but limits evaluation. Renal/Bladder: Urinary bladder largely decompressed. No hydronephrosis. Gastrointestinal: Prominence the wall throughout the colon. The colon is not very distended. No peria ppendiceal inflammatory changes. No dilated loops of bowel suggest obstruction. There is some degenerative changes the spine with disc protrusions as well as early osteophyte format ion. IMPRESSION: * No evidence of bowel obstruction or appendicitis. * The colon is not very distended but the wall does appear prominent in thickness. Would correlate w ith symptoms to ensure this is not from colitis. Electronically signed by: Shahzad Barber MD (02/22/2021 3:51 PM) [id number]
[2021-02-22] MEDS ORDERED: ONDA4TAB12 PO (16:29)
[2021-02-22] MEDS ORDERED: FAMO-63 PO (16:29)
[2021-02-22] MEDS ORDERED: cefTRIAXone IV Push 1 GM VIAL. IVP ONE (16:30)
[2021-02-22] MEDS ORDERED: CEPH500C PO (16:30)
[2021-02-22 17:16] LABS: AMPHETAMINE/METHAMPHETAMINE NEG (NEG); BARBITURATES NEG (NEG); BENZODIAZEPINES POS (NEG); CANNABINOIDS POS (NEG); COCAINE NEG (NEG); METHADONE NEG (NEG); OPIATES POS (NEG); PHENCYCLIDINE NEG (NEG)
== END 2021-02-22 17:14 | disposition home or self-care (01) ==
LOC: ER 13:10
DX: K52.9 Noninfective gastroenteritis and colitis, unspecified (principal); N39.0 Urinary tract infection, site not specified; Z87.442 Personal history of urinary calculi; G89.29 Other chronic pain; F17.200 Nicotine dependence, unspecified, uncomplicated; Z90.49 Acquired absence of other specified parts of digestive tract; Z98.51 Tubal ligation status
CPT/HCPCS: 36415; 71045; 74177; 80053; 80307; 81001; 81025; 82550; 83690; 83735; 84484; 85007; 85025; 87077; 87086; 87186; 93005; 96361; 96374; 96375; 96376; 99285; J0696; J1630; J2405; J3010; J3490; J7030; Q9967

== ENCOUNTER 2021-06-14 10:11 | Emergency (ER) | payer OTHER ==
[~2021-06-14] VITALS: Ht 162.6 cm; Wt 79.0 kg
[~2021-06-14 10:11] MED LIST changes: +CEPH500C PO; +FAMO-63 PO; +ONDA4TAB12 PO
[2021-06-14] MEDS ORDERED: fentaNYL PF VIAL 100 MCG/2 ML VIAL IV PRN (10:30)
--- NOTE | 2021-06-14 10:30 | PHYS DOC ---
Past Medical History Past Medical History: Kidney Stone Additional Past Medical Histor: PSEUDOSEIZURES, SVT Past Surgical History: Cholecystectomy, Other Additional Past Surgical Histo: CARDIAC ABLATION, DUODENAL JEJUNOSTOMY, RT WRIST Smoking Status: Current Every Day Smoker Alcohol Use: Occasionally Drug Use: None General Adult EDM: Chief Complaint: GI PROBLEM HPI: HPI: Patient is a 35 year old female with a history of SVT, with two ablations March 2021, no abdominal jejunostomy, presented to the ED today complaining of 10 out of 10 epigastric chest pain, generalized abdominal pain, symptoms began last night and then improved then reoccurred this morning and are now constant. Patient denies anything specific and exacerbating or relieving her pain. She is tearful. She is asking for pain medicine. Of note patient reports she was seen at a different ED 2 days ago for same complaints Review of Systems: Review of Systems: Constitutional: Denies fever or chills. [] Eyes: Denies change in visual acuity. [] HENT: Denies nasal congestion or sore throat. [] Respiratory: Denies cough or shortness of breath. [] Cardiovascular: Reports epigastric chest pain GI: Reports epigastric abdominal pain, denies nausea, vomiting, bloody stools or diarrhea. [] : Denies dysuria. [] Musculoskeletal: Denies back pain or joint pain. [] Integument: Denies rash. [] Neurologic: Denies headache, focal weakness or sensory changes. [] Psychiatric: Denies depression or anxiety. [] Heart Score: C/O Chest Pain: Yes HEART Score for Chest Pain: HEART Score for Chest Pain Response (Comments) Value History Slighlty/Non-Suspicious 0 ECG Normal 0 Age < 45 0 Risk Factors No Risk Factors 0 Troponin < Normal Limit 0 Total 0 Risk Factors: Risk Factors: DM, Current or recent (<one month) smoker, HTN, HLP, family history of CAD, obesity. Risk Scores: Score 0 - 3: 2.5% MACE over next 6 weeks - Discharge Home Score 4 - 6: 20.3% MACE over next 6 weeks - Admit for Clinical Observation Score 7 - 10: 72.7% MACE over next 6 weeks - Early Invasive Strategies Current Medications: Current Medications Medications (Trade) Dose Ordered Sig/[facility] Start Time Stop Time Status Last Admin Dose Admin Aspirin (Agustín Aspirin) 325 mg 1X ONCE 06/14/21 11:00 2/10/22 11:01 Famotidine (Pepcid Vial) 20 mg 1X ONCE 06/14/21 11:00 06/14/21 11:01 Fentanyl Citrate (Fentanyl 2ml Vial) 50 mcg PRN Q15MIN PRN 06/14/21 10:30 06/15/21 10:29 Ondansetron HCl (Zofran) 4 mg 1X ONCE 06/14/21 11:00 06/14/21 11:01 Allergies: Allergies: Allergies Coded Allergies Type Severity Reaction Last Updated Verified No Known Drug Allergies 06/14/21 No Physical Exam: PE: Constitutional: Well developed, well nourished, no acute distress, non-toxic appearance. [] HENT: Normocephalic, atraumatic, bilateral external ears normal, oropharynx mo ist, no oral exudates, nose normal. [] Eyes: PERRLA, EOMI, conjunctiva normal, no discharge. [] Neck: Normal range of motion, no tenderness, supple, no stridor. [] Cardiovascular: Tachycardic Lungs & Thorax: Bilateral breath sounds clear to auscultation [] Abdomen: Old healed surgical incision noted midline abdomen. Bowel sounds normal, soft, tenderness to the epigastric region of the abdomen, no right upper quadrant or right lower quadrant tenderness, no masses, no pulsatile masses. [] Skin: Warm, dry, no erythema, no rash. [] Back: No tenderness, no CVA tenderness. [] Extremities: No tenderness, no cyanosis, no clubbing, ROM intact, no edema. [] Neurologic: Alert and oriented X 3, normal motor function, normal sensory function, no focal deficits noted. [] Psychologic: Flat affect, tearful Current Patient Data: Vital Signs: Vital Signs Date Time Temp Pulse Resp B/P (MAP) Pulse Ox O2 Delivery O2 Flow Rate FiO2 06/14/21 10:15 97.3 118 24 146/100 (115) 100 97.3 EKG: EK interpreted by Dr. Lorenzana sinus rhythm heart rate 76. No STEMI[] Radiology/Procedures: Radiology/Procedures: []PROCEDURE: CT CHEST ABDOMEN PELVIS WO CT CHEST_ABDOMEN_ AND PELVIS WITHOUT CONTRAST INDICATION: CHEST PAIN AND AND PAIN COMPARISON: None. TECHNIQUE: Multiple contiguous axial images were obtained throughout the chest, abdomen, and pelvis without the use of IV contrast. Axial images were reformatted into coronal and sagittal planes. One or more of the following dose reduction techniques were utilized: Automated exposure control (AEC), Adjustment of mA and/or kV according to patient size, Use of iterative reconstruction technique such as ASiR, CT scan done according to ALARA and image gently/image wisely. FINDINGS: Chest Findings: The thyroid is symmetric. There is no axillary, mediastinal, or hilar adenopathy, although evaluation of the navneet is limited without IV contrast. The thoracic aorta diameter is normal. The cardiac size is normal. There is no pericardial effusion. The central airways are patent. Lungs are clear. No pleural abnormality. Abdomen findings: Evaluation of solid abdominal viscera is limited without the use of IV contrast. However, the liver, spleen, pancreas, and adrenal glands are unremarkable. Cholecystectomy. The kidneys are unremarkable. There is no significant mesente bijan or retroperitoneal adenopathy identified, though evaluation is limited without intravenous contrast. There is no evidence of free intraperitoneal fluid or pneumoperitoneum. Visualized portions of the bowel are grossly unremarkable. Pelvis findings: The bladder and distal ureters are unremarkable. Retroflexed uterus. There is no significant pelvic ascites. No significant iliac or inguinal adenopathy is identified. No acute osseous abnormality. IMPRESSION: No pulmonary mass or consolidation. No acute abdominal findings. Electronically signed by: Olivia Barnes MD (06/14/2021 2:29 PM) [id number] DICTATED and SIGNED BY: OLIVIA BARNES MD DATE: 06/14/21 [id number] 0 PROCEDURE: PORTABLE CHEST 1V EXAM: Chest, single view. HISTORY: Chest pain. COMPARISON: 02/22/2021 FINDINGS: A frontal view of the chest is obtained. There is no infiltrate, pleural effusion or pneumothorax. The heart is normal in size. IMPRESSION: No acute pulmonary finding. Electronically signed by: Nicky Madden MD (06/14/2021 11:26 AM) [id number] DICTATED and SIGNED BY: NICKY MADDEN MD DATE: 06/14/21 [id number] 0 Course & Med Decision Making: Course & Med Decision Making Pertinent Labs and Imaging studies reviewed. (See chart for details) This is a 35-year-old female patient presenting to the ED today complaining of epigastric chest pain, abdominal pain, symptoms began yesterday. Patient was seen at a different ED 2 days ago for the same complaints. UA is contaminated. CBC with a WBC of 18.0, CMP with potassium of 3.0, patient was given oral potassium replacement in the ED. Chest x-ray is negative for acute findings. CT of the abdomen and pelvis is negative. Discharge to home. Follow-up with her checker loader and PCP Samuel Disclaimer: Samuel Disclaimer: This electronic medical record was generated, in whole or in part, using a voice recognition dictation system. Departure Departure Impression: Primary Impression: Epigastric abdominal pain Additional Impressions: Chest pain Qualified Codes: R07.9 - Chest pain, unspecified Hypokalemia Disposition: HOME / SELF CARE / HOMELESS Condition: STABLE Referrals: YESSY ZHENG DO (PCP) follow up with your doctor in one week Patient Instructions: Abdominal Pain (Nonspecific), Chest Pain (Nonspecific) Additional Instructions: You were evaluated in the emergency room for chest pain and abdominal pain. Your cardiac work-up is negative. Please follow-up with your checker loader and primary care doctor in the course of this week or next week JADEN CHEW APRN Jun 14, 2021 10:30
--- NOTE | 2021-06-14 10:58 | EKG ---
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
[2021-06-14] MEDS ORDERED: FAMOTIDINE 20 MG/2 ML VIAL IVP ONE (11:00)
[2021-06-14] MEDS ORDERED: ONDANSETRON PF 4 MG/2 ML VIAL. IVP ONE (11:00)
[2021-06-14] MEDS ORDERED: ASPIRIN 325 MG TABLET PO ONE (11:00)
[2021-06-14 11:03] LABS: INFLUENZA A PATIENT NEGATIVE (NEGATIVE); INFLUENZA B PATIENT NEGATIVE (NEGATIVE)
--- NOTE | 2021-06-14 11:28 | RAD ---
EXAM: Chest, single view. HISTORY: Chest pain. COMPARISON: 02/22/2021 FINDINGS: A frontal view of the chest is obtained. There is no infiltrate, pleural effusion or pneumo thorax. The heart is normal in size. IMPRESSION: No acute pulmonary finding. Electronically signed by: Nicky Mendoza MD (06/14/2021 11:26 AM) [id number]
[2021-06-14] MEDS ORDERED: ONDANSETRON ODT 4 MG TAB.RAPDIS. PO ONE (11:30)
[2021-06-14] MEDS ORDERED: FAMOTIDINE 20 MG TABLET. PO ONE (11:30)
[2021-06-14] MEDS ORDERED: HYDROcodone/APAP 5/325MG 1 TAB TABLET PO ONE (11:30)
--- NOTE | 2021-06-14 11:43 | EKG ---
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
[2021-06-14 12:35] LABS: BASO # 0.1 x10^3/uL (0.0-0.2); BASO % 1 % (0-3); EOS % 0 % (0-3); HEMOGLOBIN 12.9 g/dL (12.0-15.5); LYMPH # 2.2 x10^3/uL (1.0-4.8); LYMPH % 12 % (24-48); MEAN CORPUSCULAR HEMOGLOBIN 25 pg (25-35); MEAN CORPUSCULAR HGB CONC 32 g/dL (31-37); MEAN CORPUSCULAR VOLUME 79 fL (79-100); MONO # 0.9 x10^3/uL (0.0-1.1); MONO % 5 % (0-9); NEUT # 14.7 x10^3/uL (1.8-7.7); NEUT % 82 % (31-73); PLATELET COUNT 346 x10^3/uL (140-400); RED BLOOD COUNT 5.08 x10^6/uL (3.50-5.40); RED CELL DISTRIBUTION WIDTH 15.7 % (11.5-14.5)
[2021-06-14 12:48] LABS: ALBUMIN 4.2 g/dL (3.4-5.0); ALBUMIN/GLOBULIN RATIO 1.2 (1.0-1.7); CALCIUM 8.9 mg/dL (8.5-10.1); CREATININE 0.9 mg/dL (0.6-1.0); GFR 71.7; TOTAL BILIRUBIN 0.5 mg/dL (0.2-1.0); TOTAL PROTEIN 7.8 g/dL (6.4-8.2)
[2021-06-14 13:34] LABS: BILIRUBIN,URINE NEGATIVE (NEG); CLARITY,URINE CLEAR; COLOR,URINE YELLOW; NITRITE,URINE NEGATIVE (NEG); PH,URINE 6.5 (<5.0-8.0); PROTEIN,URINE NEGATIVE (NEG-TRACE); UROBILINOGEN,URINE 0.2 mg/dL (0.2 mg/dL)
[2021-06-14 13:37] LABS: BARBITURATES NEG (NEG); BENZODIAZEPINES NEG (NEG); CANNABINOIDS POS (NEG); COCAINE NEG (NEG); METHADONE NEG (NEG); OPIATES NEG (NEG); PHENCYCLIDINE NEG (NEG)
[2021-06-14 13:39] LABS: AMPHETAMINE/METHAMPHETAMINE NEG (NEG)
[2021-06-14 13:52] LABS: BACTERIA,URINE FEW /HPF (0-FEW); RBC,URINE OCC /HPF (0-2); YEAST,URINE PRESENT /HPF
[2021-06-14] MEDS ORDERED: POTASSIUM CHLORIDE 20 MEQ TABLET.ER. PO ONE (14:00)
[2021-06-14] MEDS ORDERED: LIDO:MAALOX 1:1 20 ML SINGLE DOSE. SWSW ONE (14:00)
[2021-06-14] MEDS ORDERED: AMMONIA AROMATIC 15% INHALANT AMPUL. ONE (14:10)
[2021-06-14 14:31] LABS: % LYMPHS 19 % (24-48); % MONOS 3 % (0-10); % SEGS 78 % (35-66)
--- NOTE | 2021-06-14 14:32 | RAD ---
CT CHEST_ABDOMEN_ AND PELVIS WITHOUT CONTRAST INDICATION: CHEST PAIN AND AND PAIN COMPARISON: None. TECHNIQUE: Multiple contiguous axial images were obtained throughout the chest, abdomen, and pelvis without the use of IV contrast. Axial images were reformatted into coronal and sagittal planes. One or more of th e following dose reduction techniques were utilized: Automated exposure control (AEC), Adjustment of mA and/or kV according to patient size, Use of iterative reconstruction technique such as ASiR, CT sc an done according to ALARA and image gently/image wisely. FINDINGS: Chest Findings: The thyroid is symmetric. There is no axillary, mediastinal, or hilar adenopathy, although evaluatio n of the navneet is limited without IV contrast. The thoracic aorta diameter is normal. The cardiac size is normal. There is no pericardial effusion. The central airways are patent. Lungs are clear. No pleural abnormality. Abdomen findings: Evaluation of solid abdominal viscera is limited without the use of IV contrast. However, the liver, spleen, pancreas, and adrenal glands are unremarkable. Cholecystectomy. The kidneys are unremarkable . There is no significant mesenteric or retroperitoneal adenopathy identified, though evaluation is limited without intravenous contrast. There is no evidence of free intraperitoneal fluid or pneumope ritoneum. Visualized portions of the bowel are grossly unremarkable. Pelvis findings: The bladder and distal ureters are unremarkable. Retroflexed uterus. There is no significant pelvic a scites. No significant iliac or inguinal adenopathy is identified. No acute osseous abnormality. IMPRESSION: No pulmonary mass or consolidation. No acute abdominal findings. Electronically signed by: Bob Barnes MD (06/14/2021 2:29 PM) [id number]
[2021-06-14 14:37] LABS: PLT ESTIMATE ADEQUATE (ADEQUATE)
[2021-06-14 14:39] VITALS: BP 172/104
--- NOTE | 2021-06-15 16:23 | NUR ---
IP: Attempted to contact pt concerning covid results. No answer, left a voicemail to return the call.
--- NOTE | 2021-06-16 14:06 | NUR ---
IP: Attempted a second time to contact pt concerning covid results. No answer, left a second voicemail to return the call.
== END 2021-06-14 15:12 | disposition home or self-care (01) ==
LOC: ER 10:11
DX: R10.13 Epigastric pain (principal); R07.89 Other chest pain; E87.6 Hypokalemia; F17.200 Nicotine dependence, unspecified, uncomplicated; Z90.49 Acquired absence of other specified parts of digestive tract; Z87.442 Personal history of urinary calculi; Z93.4 Other artificial openings of gastrointestinal tract status
CPT/HCPCS: 71045; 71250; 74176; 80053; 80307; 81001; 81025; 83690; 83735; 83880; 84443; 84484; 85007; 85025; 87086; 87428; 93005; 99285; C9803; U0003